=== PATIENT | male | born 1985 | race Caucasian/White ===

== ENCOUNTER → 2016-10-22 | Day surgery (SDC) | payer OTHER ==
[~2016-10-22] MED LIST: MULTIPLE VITAM1 EAC1 PO
--- NOTE | ~2016-10-22 | OR ---
Unit #: [id number] #: [id number] Patient: TREE ELENA [id number] [address] [place], [place] [address] [id number] MR#: [id number] NAME: TREE ELENA ROOM: Date of Procedure: 10/22/2016 Admission Date: 10/22/2016 Surgeon: Skyler Hyatt M.D. : 1985 Attending Physician: Skyler Hyatt M.D. 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 PROCEDURE PERFORMED Right submandibular sialendoscopy with removal of stone and duct repair. ANESTHESIA General endotracheal. COMPLICATIONS None. ESTIMATED BLOOD LOSS Zero. FINDINGS Scarred right submandibular duct with 2 mm stone in the distal duct. INDICATIONS FOR PROCEDURE This is a 30-year-old male with history of recurrent right submandibular gland swelling. He has had this problem for years. He had procedure at younger age for repair of his duct and did well for many years, but has had recurrence of problems over the past several years. Given his history and findings, it was felt that the above procedure was indicated. DESCRIPTION OF PROCEDURE After informed consent, which included bleeding, infection, need for further surgery, anesthesia risks, the patient was taken to the operating room and placed in supine position. General endotracheal anesthesia was induced. The patient was then draped. Floor of mouth was injected with local lidocaine 2% with 1:100,000 epinephrine. A 5-0 Vicryl was used to retract the floor of mouth mucosa. The puncta were severely scarred, therefore cut down and the floor of mouth mucosa was performed in order to identify the duct. The duct was significantly dilated and the scar tissue was excised with a scissors. This allowed for debride drain from the ducts along with thick mucus. This allowed for introduction of the scope. The distal duct was scarred, but the secondary branches and tertiary branches appeared healthy. There was a small stone located in the distal duct, which was removed with grasping forceps. Marsupialization of the Unit #: [id number] #: [id number] Patient: TREE ELENA duct was performed and sewn in with interrupted 5-0 Vicryl. At this point, Kenalog was injected into the ductal system and the procedure was ended. Dictated by... Davis Cohn/so TD: 10/23/2016 01:15 JOB #: [id number] OPERATIVE REPORT Page 1 of 1 X Skyler Hyatt MD X PROCEDURE OPERATIVE NOTE
== END | disposition home or self-care (01) ==
LOC: CSUR 11:49
DX: K11.20 Sialoadenitis, unspecified (principal); K11.5 Sialolithiasis; Z79.82 Long term (current) use of aspirin; Z79.1 Long term (current) use of non-steroidal anti-inflammatories (NSAID)
CPT/HCPCS: J0330; J2250; J2405; J2710; J3010; J3301